=== PATIENT | female | born 1985 | race Caucasian/White ===

== ENCOUNTER 2023-09-09 18:25 | Emergency (ER) | payer BC ==
[~2023-09-09] VITALS: Ht 170.2 cm; Wt 56.2 kg
[2023-09-09] MEDS ORDERED: LEVO25TA9 PO (18:48)
[2023-09-09 19:44] LABS: BASOPHILS % (AUTO) 0.6 % (0.0-2.0); CALCIUM 9.1 mg/dL (8.5-10.1); CREATININE 0.9 mg/dL (0.6-1.3); DIFFERENTIAL COMMENT 1; EOSINOPHILS # (AUTO) 0.1 K/uL (0.0-0.7); EOSINOPHILS % (AUTO) 1.2 % (0.0-7.0); HEMATOCRIT 37.7 % (31.2-41.9); LYMPHOCYTES # (AUTO) 2.8 K/uL (0.8-4.8); LYMPHOCYTES % (AUTO) 43.9 % (20.5-51.5); MEAN CORPUSCULAR HEMOGLOBIN 33.1 uug (24.7-32.8); MEAN CORPUSCULAR HGB CONC 35 g/dL (32.3-35.6); MEAN CORPUSCULAR VOLUME 96.1 fL (75.5-95.3); MONOCYTES # (AUTO) 0.3 K/uL (0.1-1.30); MONOCYTES % (AUTO) 5.3 % (0.0-11.0); NEUTROPHILS # (AUTO) 3.2 K/uL (1.8-8.9); PLATELET COUNT (AUTO) 245 K/uL (179-408); POTASSIUM 3.7 mmol/L (3.5-5.1); RED BLOOD CELL COUNT(AUTO) 3.92 MIL/uL (3.63-4.92); RED CELL DISTRIBUTION WIDTH 12.1 % (12.3-17.7); WHITE BLOOD COUNT (AUTO) 6.4 K/uL (3.8-11.8)
[2023-09-09 19:46] LABS: C-REACTIVE PROTEIN 0.11 mg/dL (0.00-0.30)
[2023-09-09 19:50] LABS: ALBUMIN 4.1 g/dL (3.4-5.0); BILIRUBIN,DIRECT 0.1 mg/dL (0.0-0.2); BILIRUBIN,TOTAL 0.3 mg/dL (0.2-1.0); TOTAL PROTEIN, SERUM 7.2 g/dL (6.4-8.2)
[2023-09-09 20:03] LABS: THYROID STIMULATING HORMONE 5.912 mIU/mL (0.358-3.740)
[2023-09-09 20:24] VITALS: BP 113/86; O2SAT 100
== END 2023-09-09 20:27 | disposition home or self-care (01) ==
LOC: ER 18:29
DX: E03.9 Hypothyroidism, unspecified (principal); R10.2 Pelvic and perineal pain; K21.9 Gastro-esophageal reflux disease without esophagitis; R07.89 Other chest pain; Z79.899 Other long term (current) drug therapy
CPT/HCPCS: 36415; 70030-TC; 71045; 84443; 84480; 85025; 85651; 85730; 86140; A4606; A4663